=== PATIENT | female | born 1955 | race Asian ===

== ENCOUNTER 2021-10-18 11:17 | Inpatient (IN) | payer MEDICAID ==
[~2021-10-18] VITALS: Ht 154.9 cm; Wt 69.9 kg
[2021-10-18 11:17] VITALS: BP_SYST 179
--- NOTE | 2021-10-18 11:20 | NUR ---
BROUGHT TO BED 1, TRIAGED AND PLACED IN GOWN. DR. FERGUSON AT BEDSIDE. PT HAS L FACIAL WEAKNESS AND C/O OF OVERALL WEAKNESS AND DIZZNESS X2 DAYS. PT S/P ANGIOGRAM ON THURSDAY. PT IS AAOX4, VERBALLY RESPONSIVE. RESP E/U. ON R/A. DENIES N/V/D/C. SKIN CDI. NO EDEMA. CODE STROKE CALLED, MONITORS IN PLACE. BS 103.
--- NOTE | 2021-10-18 11:40 | NUR ---
BARN WORKER ACSW Yesy responded to Gloria Lorenzo, no need for Social Work support at this time. ACSW will continue to be available as needed
--- NOTE | 2021-10-18 11:40 | NUR ---
PT ENDORSED TO DAVEY VALLECILLO.
--- NOTE | 2021-10-18 11:42 | NUR ---
FIRST CONTACT WITH PT, PT BEING TRANSPORTED TO CT AT THIS TIME
--- NOTE | 2021-10-18 11:51 | NUR ---
BACK FROM CT
[2021-10-18 11:55] LABS: BASOPHILS % (AUTO) 0.4 % (0.0-2.0); EOSINOPHILS # (AUTO) 0.1 K/uL (0.0-0.4); EOSINOPHILS % (AUTO) 1.5 % (0.0-4.0); HEMATOCRIT 40.4 % (36-48); HEMOGLOBIN 14.1 g/dL (12.0-16.0); LYMPHOCYTES # (AUTO) 1.7 K/uL (1.0-5.5); LYMPHOCYTES % (AUTO) 22.8 % (20.5-51.5); MEAN CORPUSCULAR HEMOGLOBIN 33 pg (27-31); MEAN CORPUSCULAR HGB CONC 35 % (32-36); MEAN CORPUSCULAR VOLUME 95 fL (79.0-98.0); MONOCYTES # (AUTO) 0.5 K/uL (0.0-1.0); MONOCYTES % (AUTO) 7.2 % (1.7-9.3); NEUTROPHILS # (AUTO) 4.9 K/uL (1.8-7.7); NEUTROPHILS % (AUTO) 68.1 % (40.0-70.0); PLATELET COUNT (AUTO) 172 K/uL (130-430); RED BLOOD CELL COUNT(AUTO) 4.26 MIL/uL (4.2-6.2); RED CELL DISTRIBUTION WIDTH 12.4 % (9.0-15.0); WHITE BLOOD COUNT (AUTO) 7.2 K/uL (4.8-10.8)
--- NOTE | 2021-10-18 12:00 | NUR ---
BIB DAUGHTER WITH C/O R SIDED WEAKNESS, SLURRED SPEECH THAT STARTED AFTER CEREBRAL ANGIOGRAM 2 DAYS AGO. HX BRAIN ANEURYSM THAT WAS BEING REPAIRED. +R FACIAL DROOP AND ARM DRIFT. GCS 15. RESP EVEN AND UNLABORED. AWAITING TELE NEURO EVAL. WILL CONT TO MONITOR
--- NOTE | 2021-10-18 12:13 | NUR ---
TELE NEURO EVAL STARTED
[2021-10-18 12:14] LABS: ANION GAP 8 (5-15); CALCIUM 8.7 mg/dL (8.4-11.0); CHLORIDE 108 mmol/L (98-107); CREATININE 0.68 mg/dL (0.55-1.30); GLUCOSE 123 mg/dL (70-99); POTASSIUM 3.7 mmol/L (3.5-5.1); SODIUM SERUM 142 mmol/L (136-145); UREA NITROGEN, BLOOD 15 mg/dL (8-21)
[2021-10-18 12:16] LABS: GFR AFRICAN AMERICAN 112 mL/min (>90)
[2021-10-18 12:19] LABS: INR 0.9 (0.8-1.2); PROTHROMBIN TIME 9.4 SECS (9.5-12.5)
[2021-10-18 12:26] LABS: ALANINE AMINOTRANSFERASE 18 U/L (12-78); ALBUMIN 3.6 g/dL (3.4-4.8); ASPARTATE AMINOTRANSFERASE 16 U/L (10-37); TOTAL BILIRUBIN 0.6 mg/dL (0.0-1.0)
[2021-10-18 12:31] LABS: ALCOHOL, BLOOD < 3 mg/dL (<10)
[2021-10-18] MEDS ORDERED: ASPIRIN 81 MG TAB.CHEW PO ONE (12:45)
[2021-10-18] MEDS ORDERED: CLOPIDOGREL BISULFATE 75 MG TABLET PO ONE (12:45)
--- NOTE | 2021-10-18 12:56 | NUR ---
DR JACKSON MADE AWARE THAT PT FAILED SWALLOW SCREEN AND CANT TAKE PO MEDS
[2021-10-18] MEDS ORDERED: ASPIRIN 300 MG/SUPP.RECT SUPP RC ONE (13:00)
[2021-10-18] MEDS ORDERED: iohexoL 300 mgI/mL, 150 ML INFUS..BTL IV ONE (13:10)
--- NOTE | 2021-10-18 13:10 | NUR ---
PT TRANSPORTED TO CT FOR CTA ANGIO
--- NOTE | 2021-10-18 14:13 | NUR ---
PATRIZIAID Swabbed, sent to lab.
[2021-10-18 14:22] LABS: BILIRUBIN,URINE NEGATIVE (NEGATIVE); BLOOD, URINE NEGATIVE (NEGATIVE); CLARITY/URINE CLEAR (CLEAR); COLOR,URINE YELLOW (YELLOW); GLUCOSE,URINE NEGATIVE (NEGATIVE); KETONES,URINE NEGATIVE (NEGATIVE); LEUKOCYTE ESTERASE ,URINE NEGATIVE (NEGATIVE); NITRITE, URINE NEGATIVE (NEGATIVE); PH,URINE 7.5 (5.0-8.0); PROTEIN URINE NEGATIVE (NEGATIVE); UROBILINOGEN,URINE 0.2 (0.2-1.0)
[2021-10-18 14:33] LABS: BARBITURATE, URINE NEGATIVE (NEG <=200); BENZODIAZEPINE, URINE NEGATIVE (NEG <=150); CANNABINOID, URINE NEGATIVE (NEG <=50); COCAINE, URINE NEGATIVE (NEG <=150); METHAMPHETAMINES SCREEN,URINE NEGATIVE (NEG <=500); OPIATE, URINE NEGATIVE (NEG <=100); PHENCYCLIDINE SCREEN,URINE NEGATIVE (NEG <=25); UR TRICYCLIC ANTIDEPRESSANTS NEGATIVE (NEG <=300); URINE AMPHETAMINE NEGATIVE (NEG <=500); URINE METHADONE NEGATIVE (NEG <=200); URINE OXYCODONE SCREEN NEGATIVE (NEG <=100); URINE PROPOXYPHENE SCREEN NEGATIVE (NEG <=300)
[2021-10-18] MEDS ORDERED: METO100T14 PO (15:28)
[2021-10-18] MEDS ORDERED: SERT25TA (15:28)
[2021-10-18] MEDS ORDERED: LISI-209 PO (15:28)
--- NOTE | 2021-10-18 15:28 | NUR ---
MED REC COMPLETED. PT DOES NOT KNOW DOES OF LISINOPRIL AND ZOLOFT
--- NOTE | 2021-10-18 17:23 | NUR ---
PT RESSTING COMFORTABLY. NO DISTRESS NOTED. RESP EVEN AND UNLABORED. DENIES PAIN. AWAITING TRANSFER TO [facility]. WILL CONT TO MONITOR
--- NOTE | 2021-10-18 17:37 | NUR ---
PT IS BEING TRASNFERRED TO [facility]. REPORT CALLED TO KYLIE MARISCAL ([phone]). PT GOING RM [id number] BED 1. QUESTIONS ANSWERED. AWAITING ETA FOR TRANSPORTATION
--- NOTE | 2021-10-18 19:24 | NUR ---
Pt c/o SAM at this time. made aware. Pt in bed 1 w/ c/o right-sided neurological deficits. Pt on cardiac surgeon and pulse oximetry. Respirations even and unlabored. Bruising to right upper thigh s/p procedure last thursday.
[2021-10-18] MEDS ORDERED: NACL 0.9% 1,000 ML IV ONE (19:30)
[2021-10-18] MEDS ORDERED: KETOROLAC TROMETHAMINE 30 MG VIAL IVP ONE (19:30)
--- NOTE | 2021-10-18 20:46 | NUR ---
Patient and pt''s spouse updated on plan of care. Family and pt aware we are currently awaiting medical transport w/ no ETA at the moment.
--- NOTE | 2021-10-18 21:00 | NUR ---
Pt resting in bed at this time. States SAM "feeling much better". Pt denies any needs at this time. Respirations even and unlabored. Normal skin color for ethnicity.
--- NOTE | 2021-10-18 23:50 | NUR ---
PATIENT FOUND ON FLOOR BESIDE RIGHT SIDE OF [facility]. DENIES KO. BILATERAL BRUISING NOTED TO BOTH KNEES. PATIENT ASSISTED BY CONG RN, ALEX RN AND DAVEY SALAZAR TO [facility]. DR. GUAMAN, PRIMARY NURSE AND BANK EXAMINER NOTIFIED OF FALL.
--- NOTE | 2021-10-19 | NUR ---
Pt resting in bed at this time. Denies SAM at this time. No signs of acute distress. Side rails up. Bed in low position. court recording monitor and pulse oximetry remains on patient.
--- NOTE | 2021-10-19 00:57 | NUR ---
Admit bed requested Patient will be admitted to care of [[facility]]. Admitted to [TELE] unit. Diagnosis [STROKE] Inpatient (Yes or No) [YES] Observation (Yes or No) [NO] Orientation concerns or request close to nursing station (Yes or No) [NO] Covid Status [NEG] On vent or bipap [NO] Isolation requirements [NO] Needs a sitter [NO] From Home (Yes or if No enter name of facility) [YES] Requires Dialysis (Yes or No) [NO] Med Rec Completed (Yes of No) [NO]
[2021-10-19] MEDS ORDERED: levETIRAcetam 500 MG in NS 100 ML IV ONE (01:00)
[2021-10-19] MEDS ORDERED: LORazepam 2 MG/ML VIAL IVP ONE (01:00)
--- NOTE | 2021-10-19 03:30 | NUR ---
Pt to telemetry floor and report given to DAVEY Barron at bedside.
[2021-10-19 03:40] VITALS: BP_SYST 127
--- NOTE | 2021-10-19 03:45 | NUR ---
RECEIVED THIS 65-YEAR=OLD FEMALE PATIENT DIRECT FROM ER PER VIRGILIO. TOLERATED TRANSFER FORM HURNEY TO BED. PT APPEARS SLEEPY AND LETHARGIC BUT RESPONDING TO VERBAL AND TACTILE STIMULI. VS CHECKED AND RECORDED. KEPT COMFORTABLE ON BED. REPORT RECEIVED FORM PRECIOUS VARELA-RN.
[2021-10-19 04:00] VITALS: BP_SYST 134
--- NOTE | 2021-10-19 07:59 | NUR ---
pagemukesh Flores through exchange spoke with Orders Addendum: 10/19/21 at 0804 by Kenneth Zeng RN gavi dolan
[2021-10-19 08:00] VITALS: BP_SYST 152
[2021-10-19 08:00] LABS: BASOPHILS % (AUTO) 0.5 % (0.0-2.0); EOSINOPHILS # (AUTO) 0.2 K/uL (0.0-0.4); EOSINOPHILS % (AUTO) 2.9 % (0.0-4.0); HEMATOCRIT 38.4 % (36-48); HEMOGLOBIN 13.4 g/dL (12.0-16.0); LYMPHOCYTES # (AUTO) 1.9 K/uL (1.0-5.5); LYMPHOCYTES % (AUTO) 32.5 % (20.5-51.5); MEAN CORPUSCULAR HEMOGLOBIN 33 pg (27-31); MEAN CORPUSCULAR HGB CONC 35 % (32-36); MEAN CORPUSCULAR VOLUME 94 fL (79.0-98.0); MONOCYTES # (AUTO) 0.4 K/uL (0.0-1.0); MONOCYTES % (AUTO) 7.4 % (1.7-9.3); NEUTROPHILS # (AUTO) 3.3 K/uL (1.8-7.7); NEUTROPHILS % (AUTO) 56.7 % (40.0-70.0); PLATELET COUNT (AUTO) 153 K/uL (130-430); RED BLOOD CELL COUNT(AUTO) 4.07 MIL/uL (4.2-6.2); RED CELL DISTRIBUTION WIDTH 12.8 % (9.0-15.0); WHITE BLOOD COUNT (AUTO) 5.9 K/uL (4.8-10.8)
[2021-10-19 08:20] LABS: ALBUMIN 3.3 g/dL (3.4-4.8); CALCIUM 8.4 mg/dL (8.4-11.0); CREATININE 0.57 mg/dL (0.55-1.30); POTASSIUM 3.4 mmol/L (3.5-5.1)
--- NOTE | 2021-10-19 09:10 | NUR ---
CONSULT: NEURO R/O CVA DR. LESLY EDEN [phone] CALLED DR. GRACE ON CELL PHONE. NOTIFIED
--- NOTE | 2021-10-19 09:54 | NUR ---
CONSULT: VINI BECKWITH IS COVERING FOR DR. GRACE THIS WEEKEND PAGED THROUGH EXCHANGE SERVICES. S/W: LEELEE
--- NOTE | 2021-10-19 09:55 | NUR ---
CONSULT: CARDIO R/O CVA DR. PAZ IS HERE. GOING TO SEE PATIENT.
[2021-10-19 12:00] VITALS: BP_SYST 149
[2021-10-19] MEDS ORDERED: POTASSIUM CHLORIDE 20 MEQ TAB.PRT.SR PO ONE (12:45)
--- NOTE | 2021-10-19 13:30 | NUR ---
CM: f/u with [facility] transfer ctr # [phone]: Vinay Desai, given bed # 4408, Report # [phone]. She arranged ambulance sampler pickup with [facility] , booking ref # [id number] ETA [id number]. -- DAVEY Sarmiento made aware. Discharge package and CD placed in nursing unit. Addendum: 10/19/21 at 1637 by Sandrine Perez RN Ambulance delayed: call the center back and s/w Sonal , she checked with the [facility] and confirmed the ambulance is on the way and should arrive at nursing unit by 1645. Marisol [facility] DAVEY Sarmiento made aware
[2021-10-19 16:00] VITALS: BP_SYST 147
[2021-10-19 16:28] VITALS: BP_SYST 147
== END 2021-10-19 17:15 | disposition short-term general hospital (02) | DRG 45 ==
LOC: SED 11:17 → STU 10-19 00:52
PROVIDERS: ADMIT Internal Medicine; ATTEND Internal Medicine
DX: I63.89 Other cerebral infarction (principal); I10 Essential (primary) hypertension; R29.810 Facial weakness; T44.7X5A Adverse effect of beta-adrenoreceptor antagonists, initial encounter; Z20.822 Contact with and (suspected) exposure to COVID-19; S80.01XA Contusion of right knee, initial encounter; W06.XXXA Fall from bed, initial encounter; Z79.899 Other long term (current) drug therapy; Y92.89 Other specified places as the place of occurrence of the external cause; Z79.82 Long term (current) use of aspirin; Y93.89 Activity, other specified; Y99.8 Other external cause status
CPT/HCPCS: 36415; 70450-TC; 70496; 70498; 71045; 73564; 76376; 80053; 80307; 81003; 84484; 85025; 85610-TC; 85730-TC; 93005; 93306; 96361; 96365; 96375; 99285; G0378; G0482; J1885; J1953; J2060; J7030; Q9967